=== PATIENT | female | born 1940 | race Hispanic/Latino ===

== ENCOUNTER 2022-02-03 11:59 | Emergency (ER) | payer MEDICARE ==
[~2022-02-03] VITALS: Ht 157.5 cm; Wt 105.2 kg
[2022-02-03 12:54] LABS: CLARITY,URINE CLOUDY (CLEAR); COLOR,URINE YELLOW (YELLOW)
[2022-02-03 12:55] LABS: KETONES,URINE NEGATIVE (NEGATIVE); LEUKOCYTE ESTERASE ,URINE MODERATE (NEGATIVE); NITRITE,URINE NEGATIVE (NEGATIVE); PROTEIN,URINE DIPSTICK 2+ (NEGATIVE); URINE UROBILINOGEN 0.2 mg/dL (0.2 - 1)
[2022-02-03 13:13] LABS: RBC,URINE >50 /HPF (0-5); WBC,URINE (MAN) 21-50 /HPF (0-5)
[2022-02-03 13:15] LABS: BACTERIA,URINE MODERATE /HPF; EPITHELIAL CELLS,URINE FEW /LPF
[2022-02-03 13:16] LABS: AMORPHOUS SEDIMENT,URINE FEW (FEW)
[2022-02-03] MEDS: CEFDINIR 300 MG CAP PO SCH ×2 (13:31→13:39)
== END 2022-02-03 13:45 | disposition home or self-care (01) ==
LOC: ER 12:04
DX: R30.0 Dysuria (principal); N39.0 Urinary tract infection, site not specified; I10 Essential (primary) hypertension; E03.9 Hypothyroidism, unspecified; J45.909 Unspecified asthma, uncomplicated
CPT/HCPCS: 81001; 87086; 99283